=== PATIENT | female | born 2000 | race Hispanic/Latino ===

== ENCOUNTER 2022-03-13 18:44 | Emergency (ER) | payer OTHER ==
[~2022-03-13] VITALS: Ht 162.6 cm; Wt 54.0 kg
[2022-03-13] MEDS ORDERED: IOHEXOL 350 MG/ML 100ML INFUS..BTL IV ONE (19:02)
[2022-03-13] MEDS ORDERED: LACTATED RINGERS 1000ML 1,000 ML IV ONE (19:30)
[2022-03-13 20:24] LABS: BASOPHILS % (AUTO) 0.7 % (0.0-5.0); EOSINOPHILS % (AUTO) 1.6 % (0.0-8.0); HEMATOCRIT 36.3 % (36-48); LYMPHOCYTES % (AUTO) 14.1 % (21.0-51.0); MEAN CORPUSCULAR HEMOGLOBIN 30.9 pg (27.0-33.0); MEAN CORPUSCULAR HGB CONC 32.8 g/dL (32.0-36.0); MEAN CORPUSCULAR VOLUME 94.3 fL (79-99); MONOCYTES % (AUTO) 9.4 % (3.0-13.0); PLATELET COUNT (AUTO) 231 K/uL (130-400); RED BLOOD CELL COUNT(AUTO) 3.85 MIL/uL (4.00-5.50); WHITE BLOOD COUNT (AUTO) 8.4 K/uL (4.8-10.8)
[2022-03-13 20:43] LABS: PROTHROMBIN TIME 10.9 SEC (9.6-11.6)
[2022-03-13 20:44] LABS: PARTIAL THROMBOPLASTIN TIME 28.7 SEC (26.3-35.5)
[2022-03-13] MEDS ORDERED: CYCL-309 PO (20:49)
[2022-03-13] MEDS ORDERED: IBUP-1493 PO (20:49)
[2022-03-13 20:55] LABS: CARBON DIOXIDE 25 mmol/L (21-32); CHLORIDE 106 mmol/L (101-111); CREATININE 0.8 mg/dL (0.5-1.5); GLOMERULAR FILTR. RATE CALC 94 mL/min (>60); GLUCOSE,RANDOM 89 mg/dL (70-105); POTASSIUM 3.7 mmol/L (3.5-5.1); SODIUM SERUM 140 mmol/L (136-145); UREA NITROGEN, BLOOD 15 mg/dL (7-18)
[2022-03-13] MEDS ORDERED: TETANUS/DIPHTHERIA TOXOID [ADULT] 0.5 ML VIAL IM ONE (20:57)
[2022-03-13] MEDS ORDERED: DIPH,PERTUSS(ACELL),TET VAC/PF 0.5 ML VIAL IM ONE (21:00)
[2022-03-13] MEDS ORDERED: MORPHINE 2 MG SYG IM ONE (21:00)
[2022-03-13 21:01] VITALS: BP 113/58
[2022-03-13 21:08] LABS: ALANINE AMINOTRANSFERASE 25 U/L (12-78); ALBUMIN 3.6 g/dL (3.5-5.0); ALCOHOL, BLOOD < 3 mg/dL (0-10); ASPARTATE AMINOTRANSFERASE 41 U/L (10-37); TOTAL PROTEIN, SERUM 6.5 g/dL (6.0-8.3)
[2022-03-13 21:11] LABS: CREATINE KINASE, TOTAL 787 U/L (21-232)
== END 2022-03-13 21:17 | disposition home or self-care (01) ==
LOC: EDH 18:44
DX: S06.0X0A Concussion without loss of consciousness, initial encounter (principal); S00.83XA Contusion of other part of head, initial encounter; H11.32 Conjunctival hemorrhage, left eye; Z88.0 Allergy status to penicillin; V80.010A Animal-rider injured by fall from or being thrown from horse in noncollision accident, initial encounter; Y93.52 Activity, horseback riding; Y92.89 Other specified places as the place of occurrence of the external cause; Y99.8 Other external cause status
CPT/HCPCS: 99285; 70450; 96360; 82550; 84484; 80053; 85025; 85610; 85730; 86850; 86900; 86901; 36415; 90714; 72125; 71260; 70486; 74177; 90471; 93005; 96372; J7120; Q9967; 90715

== ENCOUNTER 2023-08-04 07:08 | Emergency (ER) | payer BC, OTHER ==
[~2023-08-04] VITALS: Ht 162.6 cm; Wt 56.7 kg
[~2023-08-04 07:08] MED LIST: CYCL-309 PO; IBUP-1493 PO
[2023-08-04] MEDS: LIDOCAINE 1%-EPI 1:100,000 20 ML VIAL IJ SCH (07:46)
[2023-08-04] MEDS: LACTATED RINGERS 1000ML 1,000 ML IV ONE (07:56)
[2023-08-04 07:57] LABS: BASOPHILS # (AUTO) 0.04 K/uL (0.00-0.20); BASOPHILS % (AUTO) 0.4 % (0.0-5.0); EOSINOPHILS # (AUTO) 0.29 K/uL (0.00-0.70); EOSINOPHILS % (AUTO) 2.7 % (0.0-8.0); HEMATOCRIT 39.6 % (36-48); IMMATURE GRANULOCYTE ABSOLUTE 0.04 K/uL (0-1); LYMPHOCYTES # (AUTO) 0.8 K/uL (1.0-4.8); LYMPHOCYTES % (AUTO) 7.9 % (21.0-51.0); MEAN CORPUSCULAR HEMOGLOBIN 31.7 pg (27.0-33.0); MEAN CORPUSCULAR HGB CONC 33.6 g/dL (32.0-36.0); MEAN CORPUSCULAR VOLUME 94.3 fL (79-99); MONOCYTES # (AUTO) 0.5 K/uL (0.1-1.0); MONOCYTES % (AUTO) 4.7 % (3.0-13.0); NEUTROPHILS # (AUTO) 8.9 K/uL (1.8-7.7); NEUTROPHILS % (AUTO) 83.9 % (40.0-77.0); PLATELET COUNT (AUTO) 209 K/uL (130-400); RED CELL DISTRIBUTION WIDTH 12.3 % (11.0-15.5); WHITE BLOOD COUNT (AUTO) 10.7 K/uL (4.8-10.8)
[2023-08-04 08:14] LABS: ALBUMIN 3.8 g/dL (3.5-5.0); BILIRUBIN,TOTAL 0.6 mg/dL (0.2-1.0); CREATININE 0.8 mg/dL (0.5-1.0); TOTAL PROTEIN, SERUM 7.1 g/dL (6.0-8.3)
[2023-08-04 09:10] LABS: RAPID GROUP A STREP negative (NEGATIVE)
[2023-08-04 09:15] LABS: SARS-CoV-2, RNA, NAAT NEGATIVE SARS CoV-2 (NEGATIVE)
[2023-08-04 09:36] LABS: INFLUENZA TYPE A NEGATIVE FOR TYPE A (NEG); INFLUENZA TYPE B NEGATIVE FOR TYPE B (NEG)
[2023-08-04] MEDS: ACETAMINOPHEN 160 MG/5ML UDCUP PO ONE (10:24)
[2023-08-04 10:38] LABS: HCG,QUALITATIVE URINE NEGATIVE (NEGATIVE)
[2023-08-04] MEDS: DEXTROSE 5 %-0.45 % NACL 1,000 ML IV SCH (10:41)
[2023-08-04 10:47] LABS: APPEARANCE,URINE CLEAR (CLEAR); BILIRUBIN,URINE NEGATIVE (NEGATIVE); COLOR,URINE COLORLESS (YELLOW); GLUCOSE, URINE (UA) NEGATIVE (NEGATIVE); KETONES,URINE 20 mg/dL (NEGATIVE); LEUKOCYTE ESTERASE ,URINE NEGATIVE Leu/uL (NEGATIVE); NITRATE,URINE NEGATIVE (NEGATIVE); OCCULT BLOOD,URINE NEGATIVE (NEGATIVE); PROTEIN,URINE NEGATIVE (NEGATIVE); UROBILINOGEN,URINE 0.2 mg/dL (0.2-1.0)
[2023-08-04 10:49] LABS: ADD UA MICROSCOPIC YES
[2023-08-04 10:58] LABS: BACTERIA,URINE Rare /HPF (None Seen); RBC,URINE 0-1 /HPF (0-1); SQUAMOUS EPITHELIAL CELL,UR Rare /HPF (0-2); WBC,URINE 0-1 /HPF (0-1)
[2023-08-04 11:14] VITALS: BP 116/66; PULSE 90; RESP 17; O2SAT 99
== END 2023-08-04 10:45 | disposition short-term general hospital (02) ==
LOC: EDH 07:08
DX: S02.611A Fracture of condylar process of right mandible, initial encounter for closed fracture (principal); S01.81XA Laceration without foreign body of other part of head, initial encounter; R55 Syncope and collapse; Z79.1 Long term (current) use of non-steroidal anti-inflammatories (NSAID); Z88.0 Allergy status to penicillin; Z20.822 Contact with and (suspected) exposure to COVID-19; W18.39XA Other fall on same level, initial encounter; Y93.89 Activity, other specified; Y92.89 Other specified places as the place of occurrence of the external cause; Y99.8 Other external cause status
CPT/HCPCS: 99285; 70486; 71045; 87635; 80053; 85025; 87880; 87804 ×2; 81001; 81025; 36415; 12011; 93005; J3490